=== PATIENT | male | born 1945 | race Two or more races ===

== ENCOUNTER 2018-02-27 11:56 | Emergency (ER) | payer MEDICARE, MEDICAID ==
[~2018-02-27] VITALS: Ht 175.3 cm; Wt 77.1 kg
[2018-02-27 12:13] VITALS: Ht 175.3 cm; Wt 77.1 kg
[2018-02-27 12:33] LABS: BASOPHIL % 0.2 % (0-2); PLATELET COUNT 158 x10^3mcL (130-400)
[2018-02-27 12:56] LABS: RED CELL DISTRIBUTION WIDTH 15.7 % (11.5-14.5)
[2018-02-27 13:23] LABS: CALCIUM 8.5 mg/dL (8.5-10.1); MAGNESIUM 1.6 mg/dL (1.8-2.4); T4(THYROXINE) 9.2 ug/dL (4.7-13.3)
[2018-02-27 13:45] LABS: CALCIUM 8.5 mg/dL (8.5-10.1); CHLORIDE SERUM 106 mmol/L (98-107); GLUCOSE SERUM 63 mg/dL (74-106); POTASSIUM SERUM 3.8 mmol/L (3.5-5.1); SODIUM SERUM 140 mmol/L (136-145)
[2018-02-27 13:51] LABS: ALBUMIN 3.6 g/dL (3.4-5.0); ALKALINE PHOSPHATASE 60 U/L (46-116); ALT/SGPT 25 U/L (16-63); AST/SGOT 19 U/L (15-37); CHOLESTEROL 117 mg/dL (<200); TOTAL PROTEIN, SERUM 7.2 g/dL (6.4-8.2)
[2018-02-27 14:17] VITALS: BP 138/78
== END 2018-02-27 14:17 | disposition short-term general hospital (02) ==
LOC: ED 11:56
PROVIDERS: Emergency Medicine
DX: S22.31XA Fracture of one rib, right side, initial encounter for closed fracture (principal); S27.321A Contusion of lung, unilateral, initial encounter; S80.01XA Contusion of right knee, initial encounter; I61.8 Other nontraumatic intracerebral hemorrhage; Z89.512 Acquired absence of left leg below knee; I48.91 Unspecified atrial fibrillation; I45.10 Unspecified right bundle-branch block; E11.9 Type 2 diabetes mellitus without complications; W18.30XA Fall on same level, unspecified, initial encounter; Y93.89 Activity, other specified; Y92.89 Other specified places as the place of occurrence of the external cause; Y99.8 Other external cause status
CPT/HCPCS: 82962; 90715; G0480; J3490; Q0092